=== PATIENT | male | born 1955 | race African-American/Black ===

== ENCOUNTER 2018-08-26 15:30 | Emergency (ER) | payer MEDICAID ==
[~2018-08-26] VITALS: Ht 170.2 cm; Wt 98.9 kg
[2018-08-26 15:35] VITALS: BP 144/92
--- NOTE | 2018-08-26 15:46 | NUR ---
PT BIB SELF C/O FACIAL PAIN X4 DAYS. PT REPORTS SHARP PAIN AT 5/10 THAT INCREASES TO 8/10 WITH TOUCH OR OPENING MOUTH. PT LIP AND JAW SWOLLEN, NO REDNESS. 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 MEDHX:HEP C RX:AURELIA
[2018-08-26] MEDS ORDERED: DEXAMETHASONE 10 MG/ML VIAL IM ONE (16:25)
[2018-08-26] MEDS ORDERED: CLINDAMYCIN 600 MG/4 ML VIAL IM ONE (16:25)
[2018-08-26] MEDS ORDERED: LEVOFLOXACIN 500 MG TAB PO ONE (16:25)
[2018-08-26 17:37] VITALS: BP 144/92
--- NOTE | 2018-08-26 17:37 | NUR ---
Patient discharged with v/s stable. Written and verbal after care instructions given and explained. Patient alert, oriented and verbalized understanding of instructions. Ambulatory with steady gait. All questions addressed prior to discharge. ID band removed. Patient advised to follow up with PMD. Rx of CLINDAMYCIN AND DOXYCYCLINE given. Patient educated on indication of medication including possible reaction and side effects. Opportunity to ask questions provided and answered.
== END 2018-08-26 17:37 | disposition home or self-care (01) ==
LOC: EDSEX 15:30 → MED 15:30
DX: L73.8 Other specified follicular disorders (principal)
CPT/HCPCS: 96372; 99283; J1100; J3490

== ENCOUNTER 2018-09-18 22:08 | Emergency (ER) | payer MEDICAID ==
[~2018-09-18] VITALS: Ht 170.2 cm; Wt 99.8 kg
[2018-09-18 22:08] VITALS: BP 167/118
--- NOTE | 2018-09-18 22:08 | NUR ---
PT YAYA ALS. TAKEN TO BED 9
--- NOTE | 2018-09-18 22:10 | NUR ---
PT BIBA FROM [facility] FOR ETOH ABUSE AND METH ABUSE. PT IS AAOX4, WITH UNSTEADY GAIT. PT REPORTS BEING SOBER FOR 14 YEARS AND BEGAN DRINKING ALCOHOL 1 MONTH AGO AND SMOKING METH BEGAN 3 DAYS AGO. PT ARRIVED HYPERTENSIVE 167/118 AND HR 117. PT ARRIVED WITH 18G IV IN PLACE TO LEFT AC AND IV FLUIDS INFUSING. PATIENT STATES PAIN OF 0/10 AT THIS TIME; PATIENT POSITIONED FOR COMFORT; HOB ELEVATED; BEDRAILS UP X2; BED DOWN. ER MD MADE AWARE OF PT STATUS.
[2018-09-18] MEDS ORDERED: NACL 0.9% 1,000 ML IV ONE (22:20)
[2018-09-18] MEDS ORDERED: LORazepam 2 MG/ML VIAL IVP ONE (22:20)
--- NOTE | 2018-09-18 22:33 | NUR ---
X-Ray at bedside.
[2018-09-18 22:35] LABS: BASOPHILS % (AUTO) 0.4 % (0.0-2.0); EOSINOPHILS # (AUTO) 0.1 K/uL (0-0.4); HEMATOCRIT 47.3 % (36-52); HEMOGLOBIN 16.2 g/dL (12.0-18.0); LYMPHOCYTES # (AUTO) 1.8 K/uL (2.0-11.5); LYMPHOCYTES % (AUTO) 20.2 % (20.5-51.1); MEAN CORPUSCULAR HEMOGLOBIN 35 pg (27-31); MEAN CORPUSCULAR HGB CONC 34 g/dL (33-37); MEAN CORPUSCULAR VOLUME 100.9 fL (80-94); MONOCYTES # (AUTO) 0.8 K/uL (0.8-1.0); MONOCYTES % (AUTO) 8.9 % (1.7-9.3); NEUTROPHILS # (AUTO) 6.1 K/uL (1.8-7.7); NEUTROPHILS % (AUTO) 69.5 % (42.2-75.2); PLATELET COUNT (AUTO) 278 K/uL (140-450); RED BLOOD CELL COUNT(AUTO) 4.69 MIL/uL (4.20-6.10); WHITE BLOOD COUNT (AUTO) 8.8 K/uL (4.8-10.8)
[2018-09-18 23:13] LABS: ALBUMIN 3.9 g/dL (3.4-5.0); ANION GAP 18.2 (8-16); CARBON DIOXIDE 24.1 mmol/L (21-32); CREATININE 0.9 mg/dL (0.7-1.3); POTASSIUM 3.3 mmol/L (3.5-5.1); TOTAL BILIRUBIN 0.9 mg/dL (0.0-1.0)
[2018-09-18] MEDS ORDERED: NACL 0.9% 500 ML IV ONE (23:40)
[2018-09-19 00:53] VITALS: BP 118/76
--- NOTE | 2018-09-19 00:53 | NUR ---
Patient discharged with v/s stable. Written and verbal after care instructions given and explained. Patient verbalized understanding. Ambulatory with to home. All questions addressed prior to discharge. Advised to follow up with PMD.
--- NOTE | 2018-09-19 02:21 | NUR ---
Security called to assist with discharge of patient. Pt awake, and able to stand up and dress himself. Pt requesting a taxi and states he will self pay to [employer]. Taxi called, ETA 45 MINS. Pt sent to JORGE bruce in w/c to wait for taxi arrival.
--- NOTE | 2018-09-19 03:02 | NUR ---
Taxi arrived, patient assisted in w/c to taxi and pt got into taxi safely. All belongings given to patient along with discharge instructions.
== END 2018-09-19 00:53 | disposition home or self-care (01) ==
LOC: MED 22:08
DX: F15.10 Other stimulant abuse, uncomplicated (principal); F10.10 Alcohol abuse, uncomplicated; R07.89 Other chest pain
CPT/HCPCS: 36415; 71045; 80053; 84484; 85025; 93005; 96374; 99284; J2060; J7030; Q0092